=== PATIENT | female | born 1945 | race Caucasian/White ===

== ENCOUNTER → 2016-12-20 | Outpatient (CLI) | payer MEDICARE ==
--- NOTE | ~2016-12-20 | CR63 ---
[facility] A Service of [facility] & [facility] RADIOLOGY TEXT RESULTS PATIENT: CARLOS RUIZ LOCATION: CRA : 43 UNIT #: [id number] AGE: [address]: Dewey Masters MD SEX: F ORDER DR: [id number] [facility] [address] [place], [place] [address] [id number] O MR#: [id number] Acc #: [id number] NAME: CARLOS RUIZ : 1945 SEX: F STUDY DATE/TIME: 12/20/2016 11:45 UNIT: [facility] ROOM: STUDY DESCRIPTION: CR Chest 2 View Attending Physician: Dewey Masters M.D. Referring Physician: Dewey Masters M.D. Ordering Physician: Dewey Masters M.D. Primary Care Physician: Corina Trevino M.D. MEDICAL IMAGING REPORT This report is preliminary unless electronic signature is present EXAM Chest x-ray 12/20 INDICATIONS Lung cancer status post resection. Chest pain since December 08, 2016. FINDINGS 2 views of the chest are compared with 12/08/2016. Two air-fluid levels are noted in the left hemithorax posteriorly. This would suggest a loculated hydropneumothorax. There is some atelectasis at the left base. Right lung is clear. IMPRESSION Air-fluid levels in the left posterior hemithorax may reflect loculated hydropneumothorax. Followup with chest CT would be beneficial for further characterization. There may also be some loculated fluid at the left base. Dictated by... Petros Santos Jr., M.D. THIS IS AN ELECTRONICALLY VERIFIED REPORT Petros Santos Jr., M.D. at 12/20/2016 6:27 PM EMILIANA/stone TD: 12/20/2016 14:52 JOB #: [id number] MEDICAL IMAGING REPORT Page 1 of 1 COPY
== END | disposition home or self-care (01) ==
LOC: CRAD 11:32
DX: C34.90 Malignant neoplasm of unspecified part of unspecified bronchus or lung (principal)
CPT/HCPCS: 71020